=== PATIENT | male | born 1955 | race African-American/Black ===

== ENCOUNTER 2020-05-13 04:22 | Emergency (ER) | payer MEDICARE, MEDICAID ==
[~2020-05-13] VITALS: Ht 172.7 cm; Wt 70.3 kg
--- NOTE | 2020-05-13 04:45 | NUR ---
ED Nurse Note: Pt walked into the ED from home with c/o toothache onset 1 week. Pt came in with swellling on left molar area with pain that radiates to the ear. Pt is scheduled to see his dentist gris for tooth extraction. pain 10/10, denies injury/trauma, no fever/chills. pt is taking pain and antibiotics
--- NOTE | 2020-05-13 04:50 | NUR ---
ED Nurse Note: ERMD at bedside
[2020-05-13 04:57] VITALS: BP 142/85
[2020-05-13] MEDS ORDERED: AMOXICILLIN500 MG ORAL (05:11)
[2020-05-13] MEDS ORDERED: HYDROCODON-ACE1 EA15 ORAL (05:11)
[2020-05-13] MEDS ORDERED: IBUPROFEN600 M1 ORAL (05:11)
--- NOTE | 2020-05-13 05:11 | Emergency Room Report ---
History of Present Illness General Chief Complaint: Toothache Source: Patient Present Illness HPI Is a 64-year-old male with history of diabetes. He presents with chief complaint of dental pain. Onset for last 2 days. Localized to the left lower jaw. He said he is supposed to get it extracted. No fever chest pain or swelling. Nothing made it better. Eating or drinking made it worse. 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: No COVID-19 Screening: Negative COVID-19 COVID-19 Testing Source: [facility] Patient History Past Medical History: see triage record, old chart reviewed, DM Past Surgical History: other Pertinent Family History: none Social History: Denies: smoking Immunizations: other Reviewed Nursing Documentation: PMH: Agreed; PSxH: Agreed Nursing Documentation-PMH Hx Diabetes: Yes Hx Neurological Problems: Yes Review of Systems Eye: Denies: eye pain, blurred vision ENT: Denies: ear pain, nose congestion, throat swelling Respiratory: Denies: cough, shortness of breath Cardiovascular: Denies: chest pain, palpitations Gastrointestinal: Denies: abdominal pain, diarrhea, nausea, vomiting Musculoskeletal: Denies: back pain, joint pain Skin: Denies: rash Neurological: Denies: headache, numbness Endocrine: Denies: increased thirst, increased urine Hematologic/Lymphatic: Denies: easy bruising All Other Systems: negative except mentioned in HPI Physical Exam Vital Signs Date Time Temp Pulse Resp B/P (MAP) Pulse Ox O2 Delivery O2 Flow Rate FiO2 05/13/20 04:26 98.4 74 20 142/85 (104) 98 Room Air Vitals unremarkable Sp02 EP Interpretation: reviewed, normal General Appearance: well appearing, no apparent distress, alert Head: normocephalic, atraumatic Eyes: bilateral eye PERRL, bilateral eye EOMI ENT: hearing grossly normal, normal pharynx, other - Diffuse dental decay. Left lower jaw only has a decay left third molar. No abscess seen. Neck: full range of motion, supple, no meningismus Respiratory: chest non-tender, lungs clear, normal breath sounds Cardiovascular #1: regular rate, rhythm, no murmur Gastrointestinal: normal bowel sounds, non tender, no mass, no organomegaly, no bruit, non-distended Musculoskeletal: back normal, normal range of motion, gait/station normal Psychiatric: mood/affect normal Medical Decision Making Diagnostic Impression: Primary Impression: Toothache ER Course This patient presents with dental pain. No evidence of any abscess to be I&D. Will discharge home. Last Vital Signs Date Time Temp Pulse Resp B/P (MAP) Pulse Ox O2 Delivery O2 Flow Rate FiO2 05/13/20 04:57 98.4 78 20 142/85 98 Room Air Status: improved Disposition: HOME, SELF-CARE Condition: Stable Scripts Ibuprofen* (MOTRIN*) 600 Mg Tablet 600 MG ORAL Q6H PRN for For Pain, #30 TAB 0 Refills Prov: Cheo Esparza MD 05/13/20 Hydrocodone/Acetaminophen 5-325* (HYDROCODONE/ACETAMINOPHEN 5-325*) 1 Each Tablet 1 TAB ORAL Q6H PRN for For Pain, #5 TAB 0 Refills Prov: Cheo Esparza MD 05/13/20 Amoxicillin* (AMOXIL*) 500 Mg Capsule 500 MG ORAL THREE TIMES A DAY, #21 CAP Prov: Cheo Esparza MD 05/13/20 Referrals: [facility] (PCP) Patient Instructions: Dental Pain Additional Instructions: Follow-up with dentist ROLANDO. Return if symptoms worsen. Cheo Esparza MD May 13, 2020 05:11
[2020-05-13] MEDS ORDERED: HYDROcodone/Acetamin 5/325 tab ORAL ONE (05:15)
--- NOTE | 2020-05-13 05:25 | NUR ---
ER DISCHARGE NOTE: Patient is cleared to be discharged per ERMD, pt is aox4, on room air, with stable vital signs. pt was given dc and prescription instructions, pt was able to verbalize understanding, pt id band removed. pt is able to ambulate with steady gait. pt took all belongings.
[2020-05-13 05:43] VITALS: BP 142/85
== END 2020-05-13 05:45 | disposition home or self-care (01) ==
LOC: EMR 04:57
DX: K02.9 Dental caries, unspecified (principal); E11.9 Type 2 diabetes mellitus without complications
CPT/HCPCS: 99282

== ENCOUNTER 2020-07-16 16:51 | Emergency (ER) | payer MEDICARE, MEDICAID ==
[~2020-07-16] VITALS: Ht 172.7 cm; Wt 70.3 kg
[~2020-07-16 16:51] MED LIST: AMOXICILLIN500 MG ORAL; HYDROCODON-ACE1 EA15 ORAL; IBUPROFEN600 M1 ORAL
--- NOTE | 2020-07-16 17:16 | NUR ---
ED Nurse Note: Pt walked into ED for back pain and neck pain 01/27 for 20 years. Pt states his pain has recently gotten worse. He denies wounds, recent injury, or fall. He is alert and ox4, ambulatory. Pt has been seen by LEONARDO.
[2020-07-16 17:19] VITALS: BP 123/86
[2020-07-16] MEDS ORDERED: Ketorolac 30mg Inj IM ONE (17:30)
--- NOTE | 2020-07-16 17:34 | Emergency Room Report ---
History of Present Illness General Chief Complaint: Back Pain-No Injury Source: Patient Present Illness HPI Patient presents with neck pain. This is worsened over the last few days. Feels stiffness and has muscle aching. He rates the pain 8/10. It radiates down his upper back and also towards the shoulder. He has difficulty raising his right arm and could not use a stick shift to bring himself to the emergency department because of the limitation in his right arm. He denies any numbness. Is been taking Motrin with minimal relief. He also is taking his daughters Naprosyn. His last dose was earlier this morning. Denies numbness or weakness in his hands. There is no recent trauma. The patient has chronic lower back problems. He injured his lower back at work and there is litigation involved with this. He does complain of some increased lower back pain at this time but it is not a significant diastasis neck. He denies that his neck was involved with injury before. However according to the triage note both problems have been present for 20 years. Apparently physical therapy has been held up due to litigation. The patient denies exposure to Covid positive contacts. No fevers, chills, sore throat, chest pain, palpitations, nausea, vomiting, diarrhea, dysuria, abdominal pain, shortness of breath, rashes, visual changes, dizziness, headache. In his history he reports suffering from depression and anxiety. 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[facility] Reviewed Nursing Documentation: PMH: Agreed; PSxH: Agreed Nursing Documentation-PMH Past Medical History: No History, Except For Hx Diabetes: Yes Hx Neurological Problems: Yes - depression, anxiety Review of Systems All Other Systems: negative except mentioned in HPI Physical Exam Vital Signs Date Time Temp Pulse Resp B/P (MAP) Pulse Ox O2 Delivery O2 Flow Rate FiO2 07/16/20 16:59 98.2 76 18 122/82 (95) 96 Room Air Sp02 EP Interpretation: reviewed, normal General Appearance: well appearing, no apparent distress, GCS 15 Head: normocephalic, atraumatic Eyes: bilateral eye normal inspection, bilateral eye PERRL, bilateral eye EOMI ENT: moist mucus membranes Neck: supple, no bony tend, tender - Right muscle straps extending to upper back and interscapular with muscle spasms Respiratory: normal inspection, chest non-tender Cardiovascular #1: regular rate, rhythm, no edema Gastrointestinal: normal inspection Genitourinary: no CVA tenderness Musculoskeletal: gait/station normal, tenderness - Lumbar area however less significant than neck able to sit and stand without difficulty Neurologic: alert, motor strength/tone normal, DTRs symmetric, oriented x3, sensory intact, cerebellar normal, speech normal Psychiatric: mood/affect normal Skin: normal color, no rash Medical Decision Making Diagnostic Impression: Primary Impression: Neck muscle strain Qualified Codes: S16.1XXA - Strain of muscle, fascia and tendon at neck level, initial encounter Additional Impression: Back pain Qualified Codes: M54.5 - Low back pain; G89.29 - Other chronic pain ER Course The patient presents with increased neck pain without trauma. Differential includes osteoarthritis, muscle strain, torticollis amongst others. There is no evidence of radiculopathy at this time. The patient has been taking anti- inflammatory medications. He is involved in some litigation and has not been involved with physical therapy recently. Based on physical exam and lack of red flag symptoms and signs imaging is not indicated at this time. Patient is given a shot of Toradol and Tylenol. The patient is observed and states that his pain is still present but improved. Discussed treatment plan with patient. Discussed importance of physical therapy and outpatient follow-up. Of interest the patient is a [facility] patient and elected to come to our emergency department. He states that there is some problem with insurance after moving from the [facility]. He makes a point of stating that he can fill the prescription at [facility] as opposed to going to [facility] to fill the prescription. Cures not reviewed and small dose of [place] scribed to patient. No medical emergency at this time. Stable for outpatient observation and treatment. Last Vital Signs Date Time Temp Pulse Resp B/P (MAP) Pulse Ox O2 Delivery O2 Flow Rate FiO2 07/16/20 19:08 98.2 82 17 127/84 99 Room Air Status: improved Disposition: HOME, SELF-CARE Condition: Improved Scripts Methocarbamol* (ROBAXIN-500*) 500 Mg Tablet 500 MG ORAL TID PRN for muscle spasm, #10 TAB 0 Refills Prov: Lauri Zaragoza MD 07/16/20 Hydrocodone Bit/Acetaminophen (HYDROCODON-ACETAMINOPHEN 5-300) 1 Each Tablet 1 EACH PO Q6HR PRN for For Pain, #8 TAB Prov: Lauri Zaragoza MD 07/16/20 Ibuprofen* (MOTRIN*) 600 Mg Tablet 600 MG ORAL Q6H PRN for FOR PAIN, #20 TAB 0 Refills Prov: Lauri Zaragoza MD 07/16/20 Referrals: [facility] (PCP) Lauri Zaragoza MD Jul 16, 2020 17:34
[2020-07-16] MEDS ORDERED: ROBAXIN-500MG ORAL (17:38)
[2020-07-16] MEDS ORDERED: HYDROCODON-ACE1 EA18 PO (17:38)
[2020-07-16] MEDS ORDERED: IBUPROFEN600 M1 ORAL (17:38)
[2020-07-16 19:08] VITALS: BP 127/84
== END 2020-07-16 19:11 | disposition home or self-care (01) ==
LOC: EMR 17:15
DX: S16.1XXA Strain of muscle, fascia and tendon at neck level, initial encounter (principal); M54.5 Low back pain; X58.XXXA Exposure to other specified factors, initial encounter; Y93.9 Activity, unspecified; Y92.9 Unspecified place or not applicable; E11.9 Type 2 diabetes mellitus without complications
CPT/HCPCS: 96372; 99283; J1885

== ENCOUNTER 2020-07-21 16:26 | Emergency (ER) | payer MEDICARE, MEDICAID ==
[~2020-07-21] VITALS: Ht 172.7 cm; Wt 72.6 kg
[~2020-07-21 16:26] MED LIST changes: +HYDROCODON-ACE1 EA18 PO; +ROBAXIN-500MG ORAL
[2020-07-21] MEDS ORDERED: Ketorolac 30mg Inj IM ONE (16:45)
--- NOTE | 2020-07-21 17:27 | NUR ---
ED Nurse Note: pt glucose 40. notified. pt A&Ox4. pt given OJ and sandwich with protein.
--- NOTE | 2020-07-21 17:35 | Emergency Room Report ---
History of Present Illness General Chief Complaint: Neck Pain Source: Patient Present Illness HPI 64-year-old male presents for evaluation. Complaining of neck pain. Has had neck pain and back pain for years due to old injuries. Was seen here a few days ago. States the pain meds did not help. Throbbing, 10 out of 10, nonradiating. Denies headache. Denies fevers or chills. No other aggravating relieving factors. Denies any other associated symptoms Allergies: Coded Allergies: No Known Allergies (Unverified , 05/13/20) COVID-19 Screening Contact w/high risk pt: No Experienced COVID-19 symptoms?: No COVID-19 Testing performed CORRESPONDENCE REPRESENTATIVE: No Patient History Past Medical History: DM, psych hx Past Surgical History: none Pertinent Family History: none Social History: Denies: smoking, alcohol use, drug use Immunizations: UTD Reviewed Nursing Documentation: PMH: Agreed; PSxH: Agreed Nursing Documentation-PMH Past Medical History: No History, Except For Hx Cardiac Problems: No - neck pain Hx Diabetes: Yes Hx Neurological Problems: Yes - depression, anxiety Review of Systems All Other Systems: negative except mentioned in HPI Physical Exam Vital Signs Date Time Temp Pulse Resp B/P (MAP) Pulse Ox O2 Delivery O2 Flow Rate FiO2 07/21/20 16:29 98.2 76 16 135/68 (90) 98 Room Air Sp02 EP Interpretation: reviewed, normal General Appearance: no apparent distress, alert, GCS 15, non-toxic Head: normocephalic, atraumatic Eyes: bilateral eye normal inspection, bilateral eye PERRL ENT: hearing grossly normal, normal pharynx, no angioedema, normal voice Neck: full range of motion, no meningismus, supple/symm/no masses, tender midline Respiratory: chest non-tender, lungs clear, normal breath sounds, speaking full sentences Cardiovascular #1: regular rate, rhythm, no edema Cardiovascular #2: 2+ carotid (R), 2+ carotid (L), 2+ radial (R), 2+ radial (L), 2+ dorsalis pedis (R), 2+ dorsalis pedis (L) Gastrointestinal: normal bowel sounds, non tender, soft, non-distended, no guarding, no rebound Rectal: deferred Genitourinary: normal inspection, no CVA tenderness Musculoskeletal: back normal, normal range of motion, gait/station normal, non- tender Neurologic: alert, motor strength/tone normal, oriented x3, sensory intact, responsive, speech normal Psychiatric: judgement/insight normal, memory normal, mood/affect normal, no suicidal/homicidal ideation Reflexes: 3+ bicep (R), 3+ bicep (L), 3+ tricep (R), 3+ tricep (L), 3+ knee (R), 3+ knee (L) Skin: no rash Lymphatic: no adenopathy Medical Decision Making Diagnostic Impression: Primary Impression: Neck pain Additional Impression: Hypoglycemia ER Course Hospital Course 64-year-old male presents with neck pain. Unrelieved with medication from recent ER visit Differential diagnoses include: Fracture, dislocation, sprain, contusion Clinical course Patient placed on stretcher. After initial history and physical, I ordered pain medications and CT C-spine Patient asked us to check his blood sugar as he skipped a meal today. Takes Lantus at night. Glucose was 40. Given food and drink. States he feels better. CT C-spine shows multilevel degenerative disease I discussed with patient. Patient would likely require Ortho evaluation possible physical therapy versus pain injection versus surgery. States he has discussed surgical options previously. I will provide referrals. Safe for discharge with close outpatient follow-up Repeat Accu-Chek within normal limits. Diagnosis - neck pain, hypoglycemia Stable and discharged to home. weight bear as tolerated. Followup with ortho. Return to ED if symptoms recur or worsen CT/MRI/US Diagnostic Results CT/MRI/US Diagnostic Results : Imaging Test Ordered: CT C spine Impression Procedure: CT C Spine no Contrast EXAM: CT Cervical Spine Without Intravenous Contrast CLINICAL HISTORY: PAIN TECHNIQUE: Axial computed tomography images of the cervical spine without intravenous contrast. CTDI is 20.20 mGy and DLP is 590.1 mGy-cm. One or more of the following dose reduction techniques were used: automated exposure control, adjustment of the mA and/or kV according to patient size, use of iterative reconstruction technique. COMPARISON: None. FINDINGS: Vertebrae: There is multilevel spondylosis with degenerative arthritis and osteophyte formation more so along the anterior vertebral bodies throughout the cervical spine. Multilevel bilateral apophyseal hypertrophy. Variable degrees of bilateral neuroforaminal encroachment seen. No distinct central canal stenosis. Normal alignment. No acute fracture. Discs/spinal canal/neural foramina: There is degenerative arthrosis involving the anterior C1-C2 articulation. No spinal canal stenosis. Soft tissues: Unremarkable. Pleural space: Lung apices revealed no pneumothorax. Mild biapical pleural thickening. IMPRESSION: Multilevel degenerative disease as described. No acute fracture or subluxation. Last Vital Signs Date Time Temp Pulse Resp B/P (MAP) Pulse Ox O2 Delivery O2 Flow Rate FiO2 07/21/20 16:29 98.2 76 16 135/68 (90) 98 Room Air Status: improved Disposition: HOME, SELF-CARE Condition: Stable Scripts Lidocaine Patch* (Lidoderm Patch*) 1 Each Adh..patch 1 PATCH TOPIC DAILY, #7 PATCH 0 Refills Patch(es) may remain in place for up to 12 hours in any 24-hour period. Prov: Michele Grigsby MD 07/21/20 Referrals: [facility] (PCP) Michele Grigsby MD Jul 21, 2020 17:35
--- NOTE | 2020-07-21 18:07 | Diagnostic Imaging Report ---
EXAM: CT Cervical Spine Without Intravenous Contrast CLINICAL HISTORY: PAIN TECHNIQUE: Axial computed tomography images of the cervical spine without intravenous contrast. CTDI is 20.20 mGy and DLP is 590.1 mGy-cm. One or more of the following dose reduction techniques were used: automated exposure control, adjustment of the mA and/or kV according to patient size, use of iterative reconstruction technique. COMPARISON: None. FINDINGS: Vertebrae: There is multilevel spondylosis with degenerative arthritis and osteophyte formation more so along the anterior vertebral bodies throughout the cervical spine. Multilevel bilateral apophyseal hypertrophy. Variable degrees of bilateral neuroforaminal encroachment seen. No distinct central canal stenosis. Normal alignment. No acute fracture. Discs/spinal canal/neural foramina: There is degenerative arthrosis involving the anterior C1-C2 articulation. No spinal canal stenosis. Soft tissues: Unremarkable. Pleural space: Lung apices revealed no pneumothorax. Mild biapical pleural thickening. IMPRESSION: Multilevel degenerative disease as described. No acute fracture or subluxation.
[2020-07-21] MEDS ORDERED: Morphine Sulfate 2mg/ml Inj(IV/IM USE ONLY) IM ONE (18:15)
[2020-07-21] MEDS ORDERED: LIDODERM700 M1 TOPIC (18:20)
--- NOTE | 2020-07-21 18:47 | NUR ---
ED Nurse Note: Pt cleared by health care Provider for discharge. DC instructions/prescription was given and explained to pt and verbalized understanding of teachings. All medical deviecs such as ID band removed. Pt is AAO x4, ambulatory and left with all personal belongings.
[2020-07-21 18:48] VITALS: BP 137/65
[2020-07-21 18:51] VITALS: BP 137/65
== END 2020-07-21 18:51 | disposition home or self-care (01) ==
LOC: EMR 16:55
DX: M47.812 Spondylosis without myelopathy or radiculopathy, cervical region (principal); E11.649 Type 2 diabetes mellitus with hypoglycemia without coma; F41.9 Anxiety disorder, unspecified; F32.9 Major depressive disorder, single episode, unspecified
CPT/HCPCS: 72125; 82962; 96372; 99284; J1885; J2270